=== PATIENT | male | born 1970 | race Caucasian/White ===

== ENCOUNTER 2017-10-02 06:24 | Day surgery (SDC) | payer BC ==
[2017-09-30 09:56] VITALS: BMI 28.1
[~2017-10-02 06:24] MED LIST: DEXAMETHASONE SOD PHOSPHATE 10 MG/ML 1 ML VIAL IV ONE; DEXAMETHASONE SOD PHOSPHATE 4 MG/ML 1 ML VIAL IV ONE; FAMOTIDINE 20 MG/2 ML VIAL IV ONE; LACTATED RINGERS 1,000 ML IV SCH; LIDOCAINE 1% 20 ML VIAL (10MG/ML) FOR IV START INTRADERMA PRN; ONDANSETRON 4 MG/2 ML VIAL IVP ONE; SCOPOLAMINE 1.5MG/72HR PATCH TRANSDERM ONE; ceFAZolin 1,000 MG in DEXTROSE/WATER 1 50ML.BAG IV ONE; fentaNYL (PF) 50 MCG/ML 2 ML AMP IV PRN
[2017-10-02] MEDS: OXYMETAZOLINE 0.05% NASL SPRAY 1 SPRAY BOTTLE NASAL ONE ×5 (06:45→07:05)
[2017-10-02] MEDS ORDERED: LACTATED RINGERS 1,000 ML IV ONE (07:04)
[2017-10-02] MEDS ORDERED: SUCCINYLCHOLINE CHLORIDE 100 MG/5 ML SYR IV ONE (08:12)
[2017-10-02] MEDS ORDERED: LIDOCAINE 1% INJ 10MG/ML (20 ML MDV) ONE (08:12)
[2017-10-02] MEDS ORDERED: PROPOFOL 10 MG/ML 20 ML VIAL IV ONE (08:12)
[2017-10-02] MEDS ORDERED: MIDAZOLAM 2 MG/2 ML VIAL ONE (08:12)
[2017-10-02] MEDS ORDERED: fentaNYL (PF) 50 MCG/ML 2 ML AMP ONE (08:12)
[2017-10-02] MEDS ORDERED: OFLOXACIN 0.3% OPHTH DROPS 5 ML BOTTLE BOTH EARS ONE (08:44)
--- NOTE | 2017-10-02 08:48 | P.OP ---
Date of Procedure: 10/02/17 Preoperative Diagnosis: Bilateral chronic otitis media with effusion Nasopharyngeal mass Postoperative Diagnosis: Same Procedure(s) Performed: Bilateral ventilation tube placement Nasopharyngeal exam with nasal endoscopy and biopsy Anesthesia: LARRY Surgeon: Camden Toney Estimated Blood Loss (ml): 1 Pathology: other (Nasopharynx biopsy) Condition: stable Disposition: PACU Indications for Procedure: This is a 46-year-old white male whose had difficulties with chronic middle ear effusions and conductive hearing loss bilateral. Also incidental finding nasopharyngeal lesion on flexible nasopharyngoscopy Operative Findings: Bilateral serous otitis media, nasopharynx mass consistent grossly with adenoid tissue Description of Procedure: The patient was brought in the operative suite and placed in a supine position. The patient underwent induction of general anesthesia with oral endotracheal intubation without difficulty. The patient was prepped and draped using aseptic fashion. The Zeiss microscope was positioned over the right ear and cerumen was cleaned from the external auditory canal. An anteroinferior myringotomy was placed in radial fashion and the middle ear effusion was aspirated. A 1.1 mm collar bobbin ventilation tube was placed without difficulty. Ciloxan drops were then placed. Attention was turned to the left where the procedure was followed exactly has had been on the right. Once this was completed attention was turned to the nasopharynx. Full endoscopic nasal examination is performed bilaterally with 0 endoscope. Proceeding through the right nasal cavity the nasopharynx was well visualized and a biopsy was taken of the nasopharyngeal tissue which appeared grossly consistent with adenoid tissue with a straight boss forceps. Hemostasis was gained with suction cautery. Once hemostasis was obtained the patient was allowed to emerge from general anesthesia having tolerated procedure well and was excised in the operative suite and transferred to the postop recovery area in satisfactory condition.
[2017-10-02 08:59] VITALS: RESP 16; TEMP 97.1
[2017-10-02 09:55] VITALS: BP 127/85; PULSE 69
== END 2017-10-02 10:03 | disposition home or self-care (01) ==
LOC: OR 06:24
PROVIDERS: ATTEND Otolaryngology
DX: H65.493 Other chronic nonsuppurative otitis media, bilateral (principal); D49.0 Neoplasm of unspecified behavior of digestive system; H90.6 Mixed conductive and sensorineural hearing loss, bilateral; H69.83 Other specified disorders of Eustachian tube, bilateral; Z88.5 Allergy status to narcotic agent; Z86.73 Personal history of transient ischemic attack (TIA), and cerebral infarction without residual deficits; Z79.51 Long term (current) use of inhaled steroids; Z87.891 Personal history of nicotine dependence; Z79.52 Long term (current) use of systemic steroids
CPT/HCPCS: 88305; 69436; 42999; J2250; J1100; J2405; J2001; J3010; J0690; J0330; J2704

== ENCOUNTER 2019-03-09 09:08 | Day surgery (SDC) | payer BC ==
[2019-03-06 08:11] VITALS: BMI 25.8
[~2019-03-09 09:08] MED LIST changes: -DEXAMETHASONE SOD PHOSPHATE 10 MG/ML 1 ML VIAL IV ONE; -DEXAMETHASONE SOD PHOSPHATE 4 MG/ML 1 ML VIAL IV ONE; -FAMOTIDINE 20 MG/2 ML VIAL IV ONE; -LIDOCAINE 1% 20 ML VIAL (10MG/ML) FOR IV START INTRADERMA PRN; -ONDANSETRON 4 MG/2 ML VIAL IVP ONE; -SCOPOLAMINE 1.5MG/72HR PATCH TRANSDERM ONE; -ceFAZolin 1,000 MG in DEXTROSE/WATER 1 50ML.BAG IV ONE; -fentaNYL (PF) 50 MCG/ML 2 ML AMP IV PRN
[2019-03-09 09:33] VITALS: TEMP 97.5
[2019-03-09] MEDS ORDERED: LIDOCAINE 1% 20 ML VIAL (10MG/ML) FOR IV START INTRADERMA ONE (09:33)
[2019-03-09] MEDS ORDERED: PROPOFOL 10 MG/ML 20 ML VIAL IV ONE (09:45)
[2019-03-09] MEDS ORDERED: MIDAZOLAM 2 MG/2 ML VIAL ONE (09:45)
[2019-03-09] MEDS ORDERED: fentaNYL (PF) 50 MCG/ML 2 ML AMP ONE (09:45)
--- NOTE | 2019-03-09 10:15 | P.PCN ---
Date of Procedure: 03/09/19 Description of Procedure: BRIEF HISTORY: Patient is a 48-year-old pleasant male scheduled for an elective colonoscopy as a part of screening for malignant neoplasm in the colon. Last colonoscopy 10 years ago and normal per patient recollection. No change in bowel habits, blood per rectum, abdominal pain or other symptoms reported. PROCEDURE PERFORMED: Colonoscopy with polypectomy. PREOPERATIVE DIAGNOSIS: Screening for malignant neoplasm colon, last colonoscopy 10 years ago. ESTIMATED BLOOD LOSS: Minimal. IV sedation per Anesthesia. PROCEDURE: After informed consent was obtained, the patient, was brought into the endoscopy unit. IV sedation was administered by Anesthesia under continuous monitoring. Digital rectal examination was normal. Initially the Olympus CF-190 flexible video colonoscope was then inserted in the rectum, gradually advanced into the cecum without any difficulty. Careful examination was performed as the scope was gradually being withdrawn. Ileocecal valve and the appendiceal orifice were visualized and appeared normal. Prep was excellent. Mucosa of the cecum, ascending colon, transverse colon, descending colon, sigmoid colon, and rectum appeared normal. Diminutive 2 mm ascending colon sessile polyp removed with cold forcep polypectomy. Small 4 mm descending colon polyp removed with cold snare polypectomy. Retroflexion was performed in the rectum and no lesions were seen, low-grade internal hemorrhoids. The patient tolerated the procedure well. IMPRESSION: Small descending colon polyp removed with cold snare. Diminutive ascending colon polyp removed with cold forceps. Normal-appearing colon from rectum to cecum. RECOMMENDATIONS: Findings of this examination were discussed with the patient in his girlfriend. Okay to resume diet. Await pathology from polypectomies. Anticipate repeat colonoscopy in 5 years pending pathology from polypectomies for personal history of colon polyps.
[2019-03-09 10:33] VITALS: BP 98/65; PULSE 78; RESP 17
== END 2019-03-09 10:47 | disposition home or self-care (01) ==
LOC: ORWHC2ENDO 09:08
PROVIDERS: ATTEND Internal Medicine
DX: Z12.11 Encounter for screening for malignant neoplasm of colon (principal); D12.2 Benign neoplasm of ascending colon; D12.4 Benign neoplasm of descending colon; K64.8 Other hemorrhoids; K21.9 Gastro-esophageal reflux disease without esophagitis; Z88.5 Allergy status to narcotic agent; Z87.891 Personal history of nicotine dependence; Z91.013 Allergy to seafood; Z96.22 Myringotomy tube(s) status; Z98.890 Other specified postprocedural states
CPT/HCPCS: 88305; 45380; 45385; J2250; J3010; J2704